=== PATIENT | female | born 1985 ===

== ENCOUNTER 2019-11-27 07:24 | Inpatient (IN) ==
[2019-11-27] MEDS ORDERED: cefOXitin 2,000 MG in Water for inj. (sterile) 20 ML IVP ONE (07:41)
[2019-11-27] MEDS ORDERED: Ringers Solution, Lactated 1,000 ML IVC SCH (07:45)
[2019-11-27] MEDS ORDERED: *HR* Promethazine 25 MG/ML VIAL IVP PRN (07:59)
[2019-11-27] MEDS ORDERED: *HR* Labetalol 20 MG/4 ML SYRINGE IVP PRN (07:59)
[2019-11-27] MEDS ORDERED: Scopolamine Patch 1.5 MG PATCH.TD72 TD ONE (07:59)
[2019-11-27] MEDS ORDERED: Famotidine 20 MG/2 ML VIAL IVP ONE (07:59)
[2019-11-27] MEDS ORDERED: Acetaminophen IV 1,000 MG/100 ML INFUS..BTL IVPB ONE (07:59)
[2019-11-27] MEDS ORDERED: *HR* HYDROmorphone 2 MG TABLET PO PRN (07:59)
[2019-11-27] MEDS ORDERED: Pregabalin 75 MG CAPSULE PO ONE (07:59)
[2019-11-27] MEDS ORDERED: Promethazine 6.25 MG in Water for inj. (sterile) 20 ML IVPB PRN (08:05)
[2019-11-27] MEDS ORDERED: *HR* FentaNYL (PF) 100 MCG/2 ML VIAL ONE (08:53)
[2019-11-27] MEDS ORDERED: *HR* Propofol 200 MG/20 ML VIAL IVP ONE (08:53)
[2019-11-27] MEDS ORDERED: *HR* Midazolam HCl 2 MG/2 ML VIAL ONE (08:53)
[2019-11-27] MEDS ORDERED: Dexamethasone 4 MG/ML VIAL ONE (08:57)
[2019-11-27] MEDS ORDERED: *HR* Rocuronium Bromide 50 MG/5 ML VIAL ONE (08:57)
[2019-11-27] MEDS ORDERED: Ondansetron 4 MG/2 ML VIAL ONE (08:57)
[2019-11-27] MEDS ORDERED: Lidocaine -MPF 2% 2 ML VIAL ONE (08:57)
[2019-11-27] MEDS ORDERED: *HR* HYDROMORPHONE 2 MG/ML VIAL ONE (10:04)
[2019-11-27] MEDS ORDERED: *HR* Succinylcholine 200 MG/10 ML VIAL IVP ONE (10:13)
[2019-11-27] MEDS ORDERED: *HR* PHENYLEPHRINE 1,000 MCG/10 ML SYRINGE IVP ONE (10:18)
[2019-11-27] MEDS ORDERED: Neostigmine Methylsulfate 3 MG/3 ML SYRINGE ONE (10:20)
[2019-11-27] MEDS ORDERED: Ketorolac 30 MG/ML VIAL ONE (10:35)
[2019-11-27] MEDS ORDERED: Naloxone 0.4 MG/ML INJ IVP PRN (10:47)
[2019-11-27] MEDS ORDERED: Ondansetron 4 MG/2 ML VIAL IVP PRN (10:47)
[2019-11-27] MEDS: *HR* OxyCODONE Immed Rel 5 MG TABLET PO PRN ×2 (11:15→11:29)
[2019-11-27] MEDS: *HR* HYDROmorphone (PF) 1 MG/ML SYRINGE IVP PRN ×3 (11:31→11:54)
[2019-11-27] MEDS: Ketorolac 30 MG/ML VIAL IVP PRN ×2 (15:01→20:25)
[2019-11-27] MEDS: *HR* HYDROcodone/Acet 5/325 mg TABLET PO PRN (17:08)
[2019-11-27] MEDS: cefOXitin 1,000 MG in Water for inj. (sterile) 10 ML IVP SCH (17:23)
[2019-11-28] MEDS: cefOXitin 1,000 MG in Water for inj. (sterile) 10 ML IVP SCH ×2 (01:56→09:57)
[2019-11-28] MEDS: *HR* HYDROcodone/Acet 5/325 mg TABLET PO PRN ×2 (06:08→11:55)
[2019-11-28 06:38] LABS: Basophils % 0.1 %; Eosinophils % 0.1 %; Hematocrit 38.4 % (35.3-44.9); Hemoglobin 12.3 g/dL (11.5-15.4); Immature Granulocytes % 0.3 % (0-4); Lymphocytes # 1.3 K/mcL (0.6-4.6); Lymphocytes % 6.7 %; Mean Corpuscular Hemoglobin 29.6 pg (28.0-33.3); Mean Corpuscular Volume 92.3 fL (83.0-100.0); Mean Platelet Volume 10.3 fL (9.4-12.4); Monocytes # 1.3 K/mcL (0.0-1.3); Monocytes % 6.8 %; Neutrophils # 16.5 K/mcL (1.6-8.9); Platelet Count 274 K/mcL (140-400); Red Blood Count 4.16 M/mcL (3.82-4.97); Red Cell Distribution Width 12.4 % (11.5-14.5); White Blood Count 19.2 K/mcL (4.3-11.1)
[2019-11-28 07:06] LABS: BUN/Creatinine Ratio 24 (6-26); Blood Urea Nitrogen 16 mg/dL (6-20); eGFR For African Americans > 60 (> 60); eGFR For Non-African Americans > 60 (> 60)
[2019-11-28 08:08] VITALS: BP 137/95
== END 2019-11-28 14:41 | disposition home or self-care (01) | DRG 743 ==
LOC: SAMDAY 07:24 → 1NENUOBS 12:30
PROVIDERS: ADMIT Obstetrics & Gynecology; ATTEND Obstetrics & Gynecology